=== PATIENT | female | born 1985 | race Caucasian/White ===

== ENCOUNTER 2021-01-19 20:46 | Emergency (ER) | payer SELFPAY ==
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
[2021-01-19 21:01] VITALS: BP 125/100; PULSE 88; RESP 20; TEMP 36.5; O2SAT 100
--- NOTE | 2021-01-19 21:11 | ECG_ITS ---
Measurements Intervals [place] Rate: 82 P: -27 [place]: 92 QRS: 74 QRSD: 82 T: 61 QT: 386 QTc: 453 Interpretive Statements SINUS OR ECTOPIC ATRIAL RHYTHM WITH SHORT [place] INTERVAL INCOMPLETE RIGHT BUNDLE BRANCH BLOCK BASELINE WANDER- I, III, AVL, AVF BORDERLINE ECG Electronically Signed On 01-20-2021 7:03:02 CDT by Kiko Ibanez D.O.
[2021-01-19] MEDS: SODIUM CHLORIDE 0.9% IV 500 ML 999 ML IV CONT (21:35)
[2021-01-19] MEDS: KETOROLAC (*BKC) 60 MG/2 ML VIAL IM (21:35)
[2021-01-19 22:11] LABS: Add Urine Microscopic? YES; Appearance Urine Clear (Clear); Bilirubin Urine 1+ (Negative); Blood Urine Negative (Negative); Color Urine Yellow (Yellow); Glucose Urine UA Negative (Negative); Ketones Urine Trace (Negative); Leukocyte Esterase Ur Negative (Negative); Nitrate Urine Negative (Negative); Protein Urine Negative (Negative); pH Urine 7.5 (5.0-8.0)
[2021-01-19 22:15] LABS: Basophils Absolute Auto 0.06 K/mm3 (0.00-0.10); Basophils Percent Auto 0.6 % (0.0-1.0); Eosinophils Percent Auto 1.9 % (1.0-6.0); Hematocrit 39.8 % (35.0-49.0); Hemoglobin 13.5 g/dL (12.0-15.0); Lymphocytes Absolute Auto 2.06 K/mm3 (1.10-4.50); Lymphocytes Percent Auto 19.9 % (18.0-42.0); Mean Corpuscular HGB Conc 33.9 g/dL (32.0-36.0); Mean Corpuscular Hemoglobin 30.6 pg (27.0-31.0); Mean Corpuscular Volume 90.2 fL (78.0-102.0); Mean Platelet Volume 9.1 fl (9.2-11.8); Monocytes Absolute Auto 1.03 K/mm3 (0.10-0.90); Neutrophils Absolute Auto 6.9 K/mm3 (1.7-7.2); Neutrophils Percent Auto 66.6 % (50.0-70.0); Platelet Count Result 347 K/mm3 (150-420); Pregnancy On Board Control Positive; Red Blood Count 4.41 M/mm3 (4.20-5.40); Red Cell Distribution Width 14.1 % (11.6-14.4); Urine Pregnancy Test Negative; White Blood Count 10.3 K/mm3 (4.8-10.8)
[2021-01-19 22:26] LABS: Mucus Urine Heavy /lpf; RBC Urine 0-2 /hpf (0-2); Squamous Epithelial Cell Urine Moderate /hpf (Few); WBC Urine 0-3 /hpf (0-3)
[2021-01-19 22:37] LABS: Alanine Aminotransferase 34 U/L (14-59); Albumin Level 3.5 g/dL (3.4-5.0); Alkaline Phosphatase 77 U/L (46-116); Anion Gap 13 mmol/L (8-16); Aspartate Amino Transferase 22 U/L (15-37); Bilirubin,Total 0.7 mg/dL (0.00-1.00); Blood Urea Nitrogen 12 mg/dL (7-18); Calcium 8.8 mg/dL (8.5-10.1); Carbon Dioxide 25 mmol/L (21-32); Chloride 102 mmol/L (98-108); Creatine Kinase 455 U/L (26-192); Estimated CRCL calculation 96 ml/min; Estimated Glomerular Filt Rate > 60; Glucose 105 mg/dL (70-99); Osmolality Calculated 289 mOsm/kg (285-295); Potassium 3.5 mmol/L (3.5-5.1); Sodium 140 mmol/L (136-145)
[2021-01-19 22:46] LABS: Troponin I < 4.0 ng/L (0.00-60.4)
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
--- NOTE | 2021-01-19 23:13 | PC.NURSE ---
pt sleeping. no distress noted.
[2021-01-19 23:43] VITALS: BP 122/69; PULSE 86; RESP 20; TEMP 36.9; O2SAT 98
== END 2021-01-19 23:49 | disposition home or self-care (01) ==
PROVIDERS: Emergency Provider Emergency Medicine
DX: S09.90XA Unspecified injury of head, initial encounter (principal); S00.83XA Contusion of other part of head, initial encounter; S02.2XXA Fracture of nasal bones, initial encounter for closed fracture
CPT/HCPCS: 36415; 70450; 70486; 71045; 72125; 80053; 81001; 81025; 82550; 84484; 85025; 93005; 96360; 96372; 99283; 99284; J1885; J7040